=== PATIENT | female | born 1985 | race Caucasian/White ===

== ENCOUNTER 2021-06-24 17:18 | Emergency (ER) | payer OTHER ==
[~2021-06-24] VITALS: Ht 167.6 cm; Wt 73.0 kg
[2021-06-24 17:18] VITALS: BP 117/81
--- NOTE | 2021-06-24 17:55 | PHYS DOC ---
Past History Past Surgical History: Cholecystectomy, Tubal ligation (IGOR GUERRA APRN) Alcohol Use: None (IGOR GUERRA APRN) Adult General Chief Complaint Chief Complaint: HAND PROBLEM HPI HPI Patient is a 36-year-old female patient with no significant medical history who presents to the ED today concerned she could have infection on the right middle finger knuckle. Patient states she cut herself 2 weeks ago. She states for the last 3 days she has noted redness to the area. Patient denies any difficulty moving the finger. Denies any fever. Denies any drainage from the laceration site. (IGOR GUERRA APRN) Review of Systems Review of Systems Constitutional: Denies fever or chills [] Integument: Reports redness to the right middle finger knuckle Neurologic: Denies headache, focal weakness or sensory changes [] All other systems were reviewed and found to be within normal limits, except as documented in this note. (IGOR GUERRA APRN) Allergies Allergies Allergies Coded Allergies Type Severity Reaction Last Updated Verified No Known Drug Allergies 06/24/21 No (IGOR GUERRA APRN) Physical Exam Physical Exam Constitutional: Well developed, well nourished, no acute distress, non-toxic appearance. [] Skin: Right middle finger unremarkable with a superficial scabbed over laceration approximately 0.5 cm with surrounding roughly 1 cm of cellulitis. The area is warm, no tenderness. No fluctuance to the area. Full range of motion to the right middle finger knuckle. +2 right radial pulse. Adequate medial sensation to the right middle finger. Cap refill less than 2 seconds. Right middle finger. Sensation intact to the right middle finger Back: No tenderness, no CVA tenderness. [] Extremities: No tenderness, no cyanosis, no clubbing, ROM intact, no edema. [] Neurologic: Alert and oriented X 3, normal motor function, normal sensory function, no focal deficits noted. [] Psychologic: Affect normal, judgement normal, mood normal. [] (IGOR GUERRA APRN) Current Patient Data Vital Signs Vital Signs Date Time Temp Pulse Resp B/P (MAP) Pulse Ox O2 Delivery O2 Flow Rate FiO2 06/24/21 17:18 98.1 65 117/81 (93) 99 06/24/21 17:18 16 Room Air (IGOR GUERRA APRN) EKG EKG [] (IGOR GUERRA APRN) Radiology/Procedures Radiology/Procedures [] (IGOR GUERRA APRN) Heart Score C/O Chest Pain: N/A Risk Factors: Risk Factors: DM, Current or recent (<one month) smoker, HTN, HLP, family history of CAD, obesity. Risk Scores: Risk Factors: DM, Current or recent (<one month) smoker, HTN, HLP, family history of CAD, obesity. (IGOR GUERRA APRN) Course & Med Decision Making Course & Med Decision Making Pertinent Labs and Imaging studies reviewed. (See chart for details) This is a 36-year-old female patient presented to the ED today with right middle finger knuckle possible infection. She cut herself to the area 1 week ago. Tetanus is up-to-date. Right hand x-rays are negative for any acute findings. Discharged on clindamycin. Provided instructions to keep the area clean and dry. Instructed to return to the ED at any point when condition worsens. Follow-up with primary care doctor next week (IGOR GUERRA APRN) Course & Med Decision Making Did not see or evaluate patient. Did not discuss patient with DEPUTY SHERIFF K9 HANDLER. Agree with DEPUTY SHERIFF K9 HANDLER's work-up and disposition per note. (SHAWN KAN MD) Dragon Disclaimer Dragon Disclaimer This electronic medical record was generated, in whole or in part, using a voice recognition dictation system. (IGOR GUERRA APRN) Departure Departure: Impression: Primary Impression: Cellulitis of right hand Disposition: HOME / SELF CARE / HOMELESS Condition: STABLE Referrals: PCP,UNKNOWN (PCP) Follow-up with your doctor in 1 to 2 weeks Patient Instructions: Cellulitis, [id number] Additional Instructions: You have skin infection on the right middle finger knuckle. Please take the prescribed antibiotics until completed. Please follow-up with your own doctor in 1 to 2 weeks. Keep the area clean and dry. Come back to the ED at any point symptoms worsen Scripts Clindamycin Hcl (CLINDAMYCIN HCL) 300 Mg Capsule 1 CAP PO TID, #21 CAP Prov: IGOR GUERRA APRN 06/24/21 IGOR GUERRA APRN Jun 24, 2021 17:55 SHAWN KAN MD Jun 24, 2021 19:34
[2021-06-24] MEDS ORDERED: CLIN-95 PO (19:00)
--- NOTE | 2021-06-24 21:03 | RAD ---
Exam: Right hand 3 views INDICATION: Right middle finger/knuckle laceration TECHNIQUE: Frontal, lateral and oblique views of the right hand Comparisons: None FINDINGS: Bone mineralization is normal. No acute or healed fractures. Soft tissues are unremarkable. Joint spa lilia are well-maintained. IMPRESSION: No acute osseous abnormality. No radiopaque foreign body identified. Electronically signed by: Barb Andrews MD (06/24/2021 9:01 PM) [email or web address]
== END 2021-06-24 19:04 | disposition home or self-care (01) ==
LOC: ER 17:18
DX: L03.113 Cellulitis of right upper limb (principal)
CPT/HCPCS: 73130; 99283

== ENCOUNTER → 2021-07-24 | Outpatient (CLI) | payer OTHER ==
[2021-06-24 17:18] VITALS: BP 117/81
[~2021-07-24] MED LIST: CLIN-95 PO
--- NOTE | 2021-07-24 15:39 | RAD ---
XR FOOT_RIGHT 3 VIEWS History: Reason: PAIN / Spl. Instructions: / History: Technique: 3 views right foot Comparison: None. Findings: Normal alignment. No acute fracture. Impression: 1. No acute osseous abnormality. Electronically signed by: Toan Louise DO (07/24/2021 3:36 PM) [id number]
== END ==
LOC: RAD 07:57
PROVIDERS: ATTEND Podiatrist
DX: M79.671 Pain in right foot (principal)
CPT/HCPCS: 73630

== ENCOUNTER → 2021-10-13 | Outpatient (CLI) | payer OTHER ==
--- NOTE | 2021-10-13 17:36 | RAD ---
EXAM: 3 views of the right foot DATE: 10/13/2021 2:55 PM INDICATION: Reason: RIGHT FOOT PAIN / Spl. Instructions: / History: COMPARISON: No Prior FINDINGS/ IMPRESSION: Progressively healing fracture of the base of the proximal phalanx fourth toe. No acute fracture or d islocation. Plantar arch is preserved. Small posterior calcaneal enthesophyte. Electronically signed by: Vega Nick MD (10/13/2021 5:34 PM) [id number]
== END ==
LOC: RAD 14:50
PROVIDERS: ATTEND Podiatrist
DX: S92.511D Displaced fracture of proximal phalanx of right lesser toe(s), subsequent encounter for fracture with routine healing (principal); M77.31 Calcaneal spur, right foot; X58.XXXD Exposure to other specified factors, subsequent encounter
CPT/HCPCS: 73630

== ENCOUNTER → 2021-12-22 | Outpatient (CLI) | payer OTHER ==
--- NOTE | 2021-12-22 15:08 | RAD ---
EXAM: Right foot, 3 views. HISTORY: Postoperative evaluation. COMPARISON: 08/16/2021 and 10/13/2021 FINDINGS: 3 views of the right foot are obtained. There is near complete bony bridging of the fourth proximal interphalangeal joint status post percutaneous pinning. There is no radiodense foreign body. There is no acute fracture. There is a tiny enthesophyte at the Achilles tendon insertion. IMPRESSION: Near-complete bony bridging of the fourth proximal interphalangeal joint status post perc utaneous pin removal. Electronically signed by: Chary Thompson MD (12/22/2021 3:06 PM) [id number]
== END ==
LOC: RAD 14:32
PROVIDERS: ATTEND Podiatrist
DX: M79.671 Pain in right foot (principal)
CPT/HCPCS: 73630